=== PATIENT | female | born 1995 | race Caucasian/White ===

== ENCOUNTER 2019-05-24 17:26 | Emergency (ER) | payer SELFPAY ==
[2019-05-24] MEDS ORDERED: Ibuprofen TAB* 600 MG PO ONE (18:56)
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
[2019-05-24 19:53] VITALS: BP 124/86
--- NOTE | 2019-05-25 10:49 | ED ---
Imaging and Labs Follow Up Follow Up Type: Imaging Labs/Culture Result: Overnight read shows possible medial malleoli fracture, nondisplaced Patient Communication/Plan: Patient was called at 10:45 AM to make aware of results, patient states she has more pain to the lateral malleolus Imaging Result: Possible medial malleoli fracture Patient Communication/Plan: Patient states she'll follow-up with orthopedics early next week, referral has been given
== END 2019-05-24 19:50 | disposition home or self-care (01) ==
LOC: ED 17:26
DX: S81.012A Laceration without foreign body, left knee, initial encounter (principal); S93.401A Sprain of unspecified ligament of right ankle, initial encounter; V49.40XA Driver injured in collision with unspecified motor vehicles in traffic accident, initial encounter; Y92.410 Unspecified street and highway as the place of occurrence of the external cause
CPT/HCPCS: 12001; 99282; A9270-GY